=== PATIENT | male | born 1990 | race Caucasian/White ===

== ENCOUNTER 2017-04-28 22:32 | Emergency (ER) | payer BC ==
[~2017-04-28] VITALS: Ht 182.9 cm; Wt 74.7 kg
[2017-04-28] MEDS ORDERED: LIDOcaine 1% 30ml preserv. free vial IJ STA (23:17)
[2017-04-29] MEDS ORDERED: HYDR-569 PO (00:56)
[2017-04-29] MEDS ORDERED: IBUP-1984 PO (00:56)
[2017-04-29 01:12] VITALS: BP 103/51
== END 2017-04-29 01:23 | disposition home or self-care (01) ==
LOC: ER 22:33
DX: S62.326A Displaced fracture of shaft of fifth metacarpal bone, right hand, initial encounter for closed fracture (principal); W22.8XXA Striking against or struck by other objects, initial encounter; Y93.89 Activity, other specified; Y92.89 Other specified places as the place of occurrence of the external cause; Y99.8 Other external cause status
CPT/HCPCS: 26605; 73130; 99284; A4565; A6449; J3490

== ENCOUNTER 2017-05-17 09:57 | Outpatient (CLI) | payer BC ==
[~2017-05-17 09:57] MED LIST: HYDR-569 PO; IBUP-1984 PO
[2017-05-17 10:04] VITALS: BP 137/82
== END 2017-05-17 10:35 | disposition home or self-care (01) ==
LOC: ORTHO 09:57
PROVIDERS: ATTEND Nurse Practitioner Family
DX: S62.326A Displaced fracture of shaft of fifth metacarpal bone, right hand, initial encounter for closed fracture (principal); F17.210 Nicotine dependence, cigarettes, uncomplicated; X58.XXXA Exposure to other specified factors, initial encounter; Y93.89 Activity, other specified; Y92.89 Other specified places as the place of occurrence of the external cause; Y99.8 Other external cause status
CPT/HCPCS: 29125; 73130; 99213

== ENCOUNTER 2017-05-31 09:43 | Outpatient (CLI) | payer BC ==
[2017-05-31 09:43] VITALS: BP 147/81
[~2017-05-31 09:43] MED LIST changes: -IBUP-1984 PO
== END 2017-05-31 10:50 | disposition home or self-care (01) ==
LOC: ORTHO 09:43
PROVIDERS: ATTEND Nurse Practitioner Family
DX: S62.356D Nondisplaced fracture of shaft of fifth metacarpal bone, right hand, subsequent encounter for fracture with routine healing (principal); F17.210 Nicotine dependence, cigarettes, uncomplicated; F12.90 Cannabis use, unspecified, uncomplicated; X58.XXXD Exposure to other specified factors, subsequent encounter
CPT/HCPCS: 29125; 73130; 99213

== ENCOUNTER 2017-06-20 17:27 | Emergency (ER) | payer BC ==
[~2017-06-20] VITALS: Ht 182.9 cm; Wt 49.6 kg
[2017-06-20 17:35] VITALS: BP 116/75
== END 2017-06-20 23:34 | disposition left against medical advice (07) ==
LOC: ER 17:27
DX: H57.10 Ocular pain, unspecified eye (principal); Z53.21 Procedure and treatment not carried out due to patient leaving prior to being seen by health care provider

== ENCOUNTER 2017-06-26 11:12 | Outpatient (CLI) | payer BC ==
[2017-06-26 11:22] VITALS: BP 148/73
== END 2017-06-26 11:50 | disposition home or self-care (01) ==
LOC: ORTHO 11:12
PROVIDERS: ATTEND Nurse Practitioner Family
DX: S62.326G Displaced fracture of shaft of fifth metacarpal bone, right hand, subsequent encounter for fracture with delayed healing (principal); F17.210 Nicotine dependence, cigarettes, uncomplicated; X58.XXXD Exposure to other specified factors, subsequent encounter
CPT/HCPCS: 29125; 73130; 99213

== ENCOUNTER 2020-12-25 12:44 | Emergency (ER) | payer OTHER ==
[~2020-12-25] VITALS: Ht 177.8 cm; Wt 90.0 kg
[~2020-12-25 12:44] MED LIST changes: +HYDR-4383 PO; -HYDR-569 PO
[2020-12-25 12:45] VITALS: BP 148/92
[2020-12-25] MEDS ORDERED: ketorolac tromethamine 15mg/ml inj. IM ONE (14:35)
== END 2020-12-25 15:20 | disposition home or self-care (01) ==
LOC: ER 12:44
DX: T68.XXXA Hypothermia, initial encounter (principal); M79.671 Pain in right foot; M79.672 Pain in left foot; Z72.89 Other problems related to lifestyle; Z79.899 Other long term (current) drug therapy; Z59.00 Homelessness unspecified; W93.8XXA Exposure to other excessive cold of man-made origin, initial encounter
CPT/HCPCS: 96372; 99283; J1885

== ENCOUNTER 2023-11-03 13:03 | Emergency (ER) | payer OTHER ==
[~2023-11-03] VITALS: Ht 182.9 cm; Wt 72.7 kg
[2023-11-03 13:34] LABS: BILIRUBIN,URINE SMALL (Neg); CLARITY,URINE CLEAR (Clear); COLOR,URINE YELLOW (Yellow); GLUCOSE, URINE NEGATIVE (Neg); KETONES,URINE NEGATIVE (Neg); LEUKOCYTE ESTERASE ,URINE NEGATIVE (Neg); NITRITES, URINE NEGATIVE (Neg); OCCULT BLOOD,URINE NEGATIVE (Neg); PH,URINE 5.5 (4.8-8.0); PROTEIN,URINE NEGATIVE (Neg); UROBILINOGEN,URINE 0.2 E.U/dL (0.2-1.0)
[2023-11-03 13:36] LABS: UA COLLECTION TYPE NON-SPECIFIED
[2023-11-03 13:54] LABS: BASOPHILS % (AUTO) 0.2 % (0-1); EOSINOPHILS # (AUTO) 0.1 X10'3 (0-0.9); EOSINOPHILS % (AUTO) 0.7 % (0-6); HEMOGLOBIN 15.2 g/dl (14.0-17.9); LYMPHOCYTES # (AUTO) 0.7 X10'3 (1.1-4.8); LYMPHOCYTES % (AUTO) 5.9 % (21-51); MEAN CORPUSCULAR HEMOGLOBIN 32.1 PG (27.0-31.0); MEAN CORPUSCULAR HGB CONC 33.7 g/dL (33.0-36.5); MEAN CORPUSCULAR VOLUME 95.3 FL (78-98); MEAN PLATELET VOLUME 8.4 FL (7.4-10.4); MONOCYTES # (AUTO) 0.7 X10'3 (0-0.9); MONOCYTES % (AUTO) 5.7 % (2-12); NEUTROPHILS # (AUTO) 10.4 X10'3 (1.8-7.7); NEUTROPHILS % (AUTO) 87.5 % (42-75); PLATELET COUNT 265 X10'3 (140-440); RED BLOOD COUNT 4.72 X10'6 (4.70-6.10); RED CELL DISTRIBUTION WIDTH 12.9 % (11.5-14.5); WHITE BLOOD COUNT 11.9 X10'3 (4.5-11.0)
[2023-11-03 14:10] LABS: ALANINE AMINOTRANSFERASE 26 U/L (12-78); ALBUMIN 3.9 G/DL (3.4-5.0); ALBUMIN/GLOBULIN RATIO 1.2 (1.1-1.5); ALKALINE PHOSPHATASE 77 IU/L (46-116); ANION GAP 11 (8-16); ASPARTATE AMINO TRANSFERASE 17 U/L (10-37); BILIRUBIN,TOTAL 0.5 MG/DL (0.1-1.0); BLOOD UREA NITROGEN 18 MG/DL (7-18); BUN/CREATININE RATIO 20.9 (10.0-20.0); CALCIUM 8.8 MG/DL (8.5-10.1); CHLORIDE 106 MMOL/L (99-107); CREATININE 0.86 MG/DL (0.60-1.10); GLUCOSE 89 MG/DL (70-104); LIPASE 28 U/L (16-77); POTASSIUM 3.9 MMOL/L (3.5-5.1); SODIUM 144 MMOL/L (135-145); TOTAL CARBON DIOXIDE 26.9 MMOL/L (24-32); TOTAL PROTEIN 7.2 G/DL (6.4-8.2); eCRCL 125 ML/MIN; eGFR > 90 ML/MIN
[2023-11-03] MEDS: metoclopramide 5 mg/ml inj IV ONE (14:24)
[2023-11-03] MEDS: diphenhydrAMINE 50 mg/ml inj IV ONE (14:24)
[2023-11-03] MEDS: normal saline 1000ML IV soln IVB ONE (14:25)
[2023-11-03] MEDS ORDERED: ONDA-243 PO (14:46)
[2023-11-03 15:21] VITALS: BP 120/83; PULSE 82; RESP 15; TEMP 98.1; O2SAT 98
== END 2023-11-03 15:23 | disposition home or self-care (01) ==
LOC: ER 13:03
DX: R11.2 Nausea with vomiting, unspecified (principal); Z72.89 Other problems related to lifestyle; Z79.899 Other long term (current) drug therapy
CPT/HCPCS: 36415; 80053; 81003; 83690; 85025; 96361; 96374; 96375; 99284; J1200; J2765; J7030

== ENCOUNTER 2024-09-19 23:47 | Emergency (ER) | payer OTHER ==
[~2024-09-19] VITALS: Ht 182.9 cm; Wt 75.5 kg
[~2024-09-19 23:47] MED LIST changes: +ONDA-243 PO
[2024-09-19 23:54] VITALS: BP 121/90; PULSE 94; RESP 14; O2SAT 98
--- NOTE | 2024-09-20 00:11 | Physician Documentation ---
History of Present Illness ~ Chief Complaint: Abrasion Stated Complaint: INFECTION UNDER EYE Time Seen by MD: 01:22 Primary Medical Doctor: none HPI 33-year-old male presents with pain to abrasion under right eye for 2 days. He states that he squeezed it like a zit and fluid squirted out. He denies any dental pain. He is also complaining of multiple bug bites to his back and behind his ear. Denies any fevers or chills. Medication Reconciliation Allergies: Uncoded Allergies: METAL (Allergy, Unknown, 09/19/24) Scheduled Hydrocodone/Acetaminophen ([place] 5-325 Tablet), 1-2 TAB PO Q4HPRN Scheduled PRN ONDANSETRON ODT 4mg tablet (Ondansetron Odt), 1 TAB PO Q6H PRN PRN for nausea/vomiting Past Medical History Past Medical History: No Pertinent History, Hypothyroidism Past Surgical History: no surgical history Smoking Status: Current every day smoker Alcohol Use: Occasionally Drug Use: none Lives with: Family Lives In: Home Occupation: employed Review of Systems All Other Systems at this time: Reviewed and Negative ROS Patient denies any other acute symptoms other than above. All other systems are negative Physical Exam Vital Signs: RN Vital Signs have been reviewed: Yes, Temperature: 97.0, Source: Temporal, Heart Rate: 94, Respiratory Rate: 14, BP: 121/90, Pulse Oximetry: 98, Weight: 75.500 Pulse Oximetry Reflects: adequate oxygenation Physical Exam General Appearance: No distress, poor hygiene, disheveled HEENT: Normal OP, moist oral mucosa, PERRL, EOMI Neck: supple, normal ROM, trachea midline Pulmonary: No respiratory distress, CTA, BS equal Cardiac: RRR, no murmur, rub or gallop, Skin: intact, dry, warm, lesions over the left posterior lateral neck that appear like insect bites or mosquito bites. Patient has a crusty lesion, honeycomb appearing that has been abraded by him scratching in squeezing it. Neuro: AAOx3, speech is clear, no focal motor weakness Psych: normal affect, good eye contact, no apparent hallucination, normal speech Progress Results/Orders Results/Orders Vital Signs 09/19/24 23:54 Temp 97.0 Pulse 94 Resp 14 B/P (MAP) 121/90 Pulse Ox 98 Medical Decision Making Findings Differential diagnosis includes but is not limited to: Abrasion, impetigo, abscess, cellulitis, erysipelas Emergency department course/medical decision-making: Patient's physical exam is consistent with impetigo. Patient will be placed on mupirocin and dicloxacillin. Diagnosis discussed with the patient the need for antibiotics. Patient is stable for discharge. Departure Time of Disposition: 01:30 Disposition: HOME / SELF CARE / HOMELESS Impression: Primary Impression: Impetigo Condition: Stable Discharge Instructions: Impetigo, Adult Prescriptions Mupirocin* (Bactroban*) 22 Gm Tube 1 APPLIC TOP Q8H for 5 Days, #15 GM apply to affected area(s) Prov: NICCI FRANCISCO MD 09/20/24 Dicloxacillin Sodium* (Dynapen*) 500 Mg Capsule 1 CAP PO Q6H for 7 Days, #28 CAP Prov: NICCI FRANCISCO MD 09/20/24 Education Educated: Patient Educated regarding: diagnosis, treatment Additional Comment Medical Screen Exam This patient recieved a medical screening examination. After reviewing the individual's medical complaints with presenting symptoms and performing an appropriate physical examination, it was determined that no immediate life- threatening emergency medical condition is present. This individual is also not a women having contractions. Signature Scribe Signature: No scribe Attestation: No scribe SALO WEBER Sep 20, 2024 00:11 NICCI FRANCISCO MD Sep 20, 2024 01:30
[2024-09-20] MEDS ORDERED: MUPI22OI30 TOP (01:33)
[2024-09-20] MEDS ORDERED: DYN500C PO (01:33)
[2024-09-20 01:42] VITALS: TEMP 97
== END 2024-09-20 01:43 | disposition home or self-care (01) ==
LOC: ER 23:48
DX: L01.00 Impetigo, unspecified (principal); F17.200 Nicotine dependence, unspecified, uncomplicated
CPT/HCPCS: 99283

== ENCOUNTER 2024-10-16 04:36 | Emergency (ER) | payer OTHER ==
[~2024-10-16] VITALS: Ht 182.9 cm; Wt 68.8 kg
[2024-10-16 04:41] VITALS: BP 131/86; PULSE 100; RESP 17; TEMP 96.3; O2SAT 99
[2024-10-17] MEDS ORDERED: NO HOME MEDS (09:54)
== END 2024-10-16 09:11 | disposition left against medical advice (07) ==
LOC: ER 04:37
DX: M79.89 Other specified soft tissue disorders (principal); Z53.21 Procedure and treatment not carried out due to patient leaving prior to being seen by health care provider

== ENCOUNTER 2024-10-17 08:46 | Inpatient (IN) | payer OTHER ==
[~2024-10-17] VITALS: Ht 182.9 cm; Wt 73.2 kg
--- NOTE | 2024-10-17 09:47 | Physician Documentation ---
History of Present Illness ~ Chief Complaint: Leg Pain Stated Complaint: POISON [place]AK Time Seen by MD: 09:21 OK to notify your PCP?: Yes Primary Medical Doctor: none Source: patient Mode of Arrival: POV Exam Limitations: no limitations HPI 33-year-old male presents with bilateral lower extremity wounds with ulcerations. He does have a area of wound with crusting over on his right face. He states that he has had these for the past 4-5 days however they appear to be a spreading. He has not taken any antibiotics for this yet. He denies a hist ory of MRSA or fevers at home. He is homeless. Tetanus witin 5 years: No Medication Reconciliation Allergies: Coded Allergies: No Known Allergies (Unverified , 10/17/24) Miscellaneous Medications Home Med List (No Home Medications), (Reported) Past Medical History Past Medical History: No Pertinent History, Hypothyroidism Past Surgical History: no surgical history Alcohol Use: Occasionally Drug Use: none Lives with: Family Lives In: Home Occupation: employed Review of Systems All Other Systems at this time: Reviewed and Negative Physical Exam Vital Signs: RN Vital Signs have been reviewed: Yes, Temperature: 98.3, Source: Oral, Heart Rate: 98, Respiratory Rate: 16, BP: 113/79, Pulse Oximetry: 99, Weight: 73.150 Oxygen Flow Rate: 0 Pulse Oximetry Reflects: adequate oxygenation Physical Exam General: Alert, no apparent distress. HEENT: PERRL, EOMI, no injection, moist mucous membranes. Neck: Full range of motion. Respiratory: Lungs clear, no respiratory distress. Chest: No accessory muscle use. Cardiovascular: Regular rate and rhythm, no murmurs. Gastrointestinal: Soft, nontender, nondistended. Bowels sounds present. Extremities: Normal range of motion, no deformity. Neurologic: Oriented x4. Psychiatric: Normal mood and affect. Skin: Bilateral foot, shun, calf, and knee ulcerations with crusting, purulent drainage, surrounding edema, warmth, induration and localized pain. Wound with crusting drainage to right cheek. Progress Results/Orders Reviewed/noted all lab results: Yes Results/Orders Orders - HEIDI WEBER BRICK SHADER Urinalysis, Cult If Indicated (10/17/24 09:40) Culture Blood (10/17/24 09:40) Saline Lock (10/17/24 ) Monitor (10/17/24 ) Page Hospitalist (10/17/24 10:57) Fill Out Med Reconciliation (10/17/24 10:57) Completed Orders - HEIDI WEBER BRICK SHADER Cbc/Diff (10/17/24 09:40) MG (10/17/24 09:40) Procalcitonin (10/17/24 09:40) Vancomycin/Ns 1 Gm Add-[place] (Vancomyc (10/17/24 09:40) Piperacillin/Tazo 3.375gm/50ml (Zosyn 3. (10/17/24 09:40) BMP (10/17/24 09:40) Lacticsepsis (10/17/24 09:40) Normal Saline 1000ml (0.9% Sodium Chlori (10/17/24 09:40) Normal Saline 1000ml (0.9% Sodium Chlori (10/17/24 11:00) Medications Received in ER Medications (Trade) Dose Ordered Sig/Grupo Route PRN Reason Start Time Stop Time Status Last Admin Dose Admin Vancomycin HCl 250 ml @ 166 mls/hr ONCE ONCE IV 10/17/24 09:40 10/17/24 11:10 DC 10/17/24 11:01 166 MLS/HR Piperacillin/ Tazobactam/ Dextrose 50 ml @ 100 mls/hr ONCE ONCE IV 10/17/24 09:40 10/17/24 10:09 DC 10/17/24 10:31 100 MLS/HR (0.9% sodium chloride (NS) 1000ml IV soln) 1,000 ml ONCE ONCE IVB 10/17/24 09:40 10/17/24 09:44 DC 10/17/24 10:31 1,000 ML (0.9% sodium chloride (NS) 1000ml IV soln) 1,000 ml ONCE ONCE IVB 10/17/24 11:00 10/17/24 11:01 DC 10/17/24 11:03 1,000 ML Vital Signs 10/17/24 10/17/24 10/17/24 10/17/24 08:53 09:43 09:49 10:57 Temp 98.3 Pulse 98 82 79 Resp 16 B/P (MAP) 113/79 113/73 (86) 131/78 (95) Pulse Ox 99 100 100 O2 Flow Rate 0 0 0 Laboratory Tests Test 10/17/24 10:04 White Blood Count 12.4 H Red Blood Count 4.37 L Hemoglobin 13.6 L Hematocrit 40.2 L Mean Corpuscular Volume 91.9 Mean Corpuscular Hemoglobin 31.2 H Mean Corpuscular Hemoglobin Concent 33.9 Red Cell Distribution Width 12.3 Platelet Count 393 Mean Platelet Volume 7.6 Neutrophils (%) (Auto) 76.3 H Lymphocytes (%) (Auto) 16.7 L Monocytes (%) (Auto) 4.3 Eosinophils (%) (Auto) 2.2 Basophils (%) (Auto) 0.5 Neutrophils # (Auto) 9.5 H Lymphocytes # (Auto) 2.1 Monocytes # (Auto) 0.5 Eosinophils # (Auto) 0.3 Basophils # (Auto) 0.1 CBC Comment Sodium Level 141 Potassium Level 3.7 Chloride Level 103 Carbon Dioxide Level 34.0 H Anion Gap 4 L Blood Urea Nitrogen 9 Creatinine 1.06 Estimated GFR/1.73 m2 80 BUN/Creatinine Ratio 8.5 L Glucose Level 116 H Lactic Acid Level 1.6 Calcium Level 8.5 Magnesium Level 2.5 H Albumin 3.2 L Procalcitonin < 0.05 Chemistry Comments Medical Decision Making Additional info obtained from: old records Findings 33-year-old male with multiple bilateral leg wounds with ulceration, purulent drainage and erythema. He states this all started 4 days ago. I did a sepsis workup on him and his WBCs are elevated, lactic is normal, procalcitonin is normal and his heart rate was over 90 on arrival. He is afebrile currently. I started with Zosyn and vancomycin for IV antibiotics, and administered 2 L normal saline bolus and have paged for admission. He does have some mild anemia, but the rest of his labs are unremarkable. He is currently homeless and does not have any adequate follow up care or wound care resources. I discussed this case with Dr. Bazzi who also examined the patient and agrees that he would benefit from admission for IV antibiotics as well as wound care resources. I spoke with Dr. Bates who accepts this admission. General Diff Dx:Considerations: Include: Neurovascular injury Ankle Diff Dx:Considerations: Include: Gout, Osteomyelitis (His knee) Foot Diff Dx:Considerations: Include: Abrasion, Arthritis Departure Disposition: 09 ADMITTED INPATIENT Admitted to Inpatient Unit: to hospitalist Admission Level of Care: Med/Surg Impression: Primary Impression: Open wound of both legs with complication Referrals: NO PRIMARY CARE PROVIDER (PCP) Additional Comment Medical Screen Exam This patient recieved a medical screening examination. After reviewing the individual's medical complaints with presenting symptoms and performing an appropriate physical examination, it was determined that no immediate life- threatening emergency medical condition is present. This individual is also not a women having contractions. Signature Scribe Signature: . Attestation: Scribed for Heidi Weber Paper Baler by Heidi Dsouza NP . 10/17/24 11:15 Parts of this note were created using [employer] voice recognition software program. While efforts were made to correct any mistakes made by this voice recognition software program, nonsensical phrases may remain in this note. In addition, there may be errors and syntax, grammar, content and spelling. HEIDI WEBER BRICK SHADER Oct 17, 2024 09:47
[2024-10-17] MEDS ORDERED: NO HOME MEDS (09:54)
[2024-10-17] MEDS: piperacillin/tazo 3.375gm/50ml 50 ML IV ONE (10:31)
[2024-10-17] MEDS: normal saline 1000ML IV soln IVB ONE ×2 (10:31→11:03)
[2024-10-17 10:39] LABS: MEAN PLATELET VOLUME 7.6 FL (7.4-10.4); RED CELL DISTRIBUTION WIDTH 12.3 % (11.5-14.5)
[2024-10-17 10:45] LABS: CREATININE 1.06 MG/DL (0.60-1.10); TOTAL CARBON DIOXIDE 34.0 MMOL/L (24-32); eCRCL 102 ML/MIN; eGFR 80 ML/MIN
[2024-10-17] MEDS: vancomycin/NS 1 GM ADD-VANTAGE 250 ML IV ONE (11:01)
[2024-10-17] MEDS ORDERED: potassium Cl 20 mEq SR tablet PO PRN ×2 (11:15)
[2024-10-17] MEDS ORDERED: magnesium sulf-water 2g/50mL 50 ML IV PRN (11:15)
[2024-10-17] MEDS ORDERED: potassium Cl 40MEQ/1/2NS 520ml 520 ML IV PRN (11:15)
[2024-10-17] MEDS ORDERED: ondansetron/PF 4mg/2ml inj IV PRN (11:15)
[2024-10-17] MEDS ORDERED: HYDROcodone/acetaminophen 5mg/325mg tablet PO PRN (11:15)
[2024-10-17] MEDS ORDERED: magnesium Cl slow-release 64mg tablet PO PRN (11:15)
[2024-10-17] MEDS ORDERED: bisacodyl 10mg suppository rectal RC PRN (11:15)
[2024-10-17] MEDS ORDERED: magnesium sulf-water 4G/100mL 100 ML IV PRN (11:15)
[2024-10-17] MEDS: normal saline 1000ml 1,000 ML IV SCH (12:04)
[2024-10-17 13:08] VITALS: RESP 18; O2SAT 100
[2024-10-17 13:19] VITALS: BP 124/75; PULSE 83; RESP 18; TEMP 97.5; O2SAT 100
[2024-10-17] MEDS: nicotine 14mg patch - 24hr TD SCH (15:05)
[2024-10-17 18:00] VITALS: BP 130/84; PULSE 78; RESP 15; TEMP 98.4; O2SAT 98
--- NOTE | 2024-10-17 18:16 | HISTORY AND PHYSICAL ---
History & Physical Providers to CC ~ History of Present Illness Reason for Admit\Complaint: Sore over legs History of Present Illness 33-year-old male presents with bilateral lower extremity wounds with ulcerations. He does have a area of wound with crusting over on his right face. He states that he has had these for the past 4-5 days however they appear to be a spreading. He has not taken any antibiotics for this yet. He denies a history of MRSA or fevers at home. He is homeless. Patient denies any IV drug use. He does not feel he is diabetic. Patient does not have any other medical problems does not take any medications. Allergies: Coded Allergies: No Known Allergies (Unverified , 10/17/24) Home Medications Home Medications Active Reported No Home Medications (Home Med List) Each Past Medical History Past Medical History No Pertinent History, Past Surgical History Surgical History Comment no surgical history Past Social History Social History Comment Patient had one beer 12 on couple of days back smoke half pack of cigarettes , use cannabis off and on . Denies any other recreational drug use. ROS ROS Review of system as mentioned above in HPI rest of the review of system unremarkable Exam Vitals: Vital Signs Date Time Temp Pulse Resp B/P (MAP) Pulse Ox O2 Delivery O2 Flow Rate FiO2 10/17/24 13:19 97.5 83 18 124/75 (91) 100 Room Air 10/17/24 11:54 0 General: General-patient not in any acute distress, alert awake oriented, chronically ill-appearing HEENT-atraumatic normocephalic, neck supple without elevated JVD, no thyromegaly or carotid bruit. No lymphadenopathy bilaterally. Eyes-no icterus or pallor seen in eyes Chest-clear to auscultation bilaterally, breathing nonlabored no tachypnea, no wheezing, no crepitation, no crackles. Heart-S1-S2 normal, regular heart rate no murmur Abdomen bowel sounds positive on auscultation, soft nondistended nontender no guarding, no rigidity Skin - bilateral lower extremity wound present one lower extremity wound open pus discharge noticed. He also has crusting over on his right face. Neurology-grossly intact, nonfocal alert awake oriented Extremity- no pedal edema able to move all 4 extremities Psychiatry - patient is not confused or agitated cooperated during physical examination Diagnostic Data Last Recorded Lab Results: 10/17/24 1004 10/17/24 1004 Counseling Services Smoking & Tobacco Cessation: 3-10 Minutes Advance Care Planning Advanced Care plannin - 30 Minutes Additional Plan 33-year-old male presents with bilateral lower extremity wounds with ulcerations. Patient is admitted for bilateral lower extremity cellulitis. Patient is started on vancomycin and ceftriaxone we will continue to monitor patient's vitals and labs. Nicotine patch ordered due to patient's history of smoking. Patient is strongly advised to stop smoking and risks explained. Code status discussed with the patient patient wishes to stay full code. Time spent in discussing code status 16 minutes. Patient does not take any medications at home further management depending on response to treatment we will continue to follow patient in a.m. Date of Service: Oct 17, 2024 Billing Provider: YENIFER TURCIOS MD Common Visit Codes: 67649-QBAGIUD INP/OBS CARE (HIGH) Secondary Visit Codes: 44568-[id number] CARE PLAN 30 MINUTES YENIFER TURCIOS MD Oct 17, 2024 18:16
[2024-10-17 18:55] LABS: LEUKOCYTE ESTERASE ,URINE NEGATIVE (Neg); NITRITES, URINE NEGATIVE (Neg); OCCULT BLOOD,URINE NEGATIVE (Neg)
[2024-10-17 18:58] LABS: UA COLLECTION TYPE CLN CATCH MIDSTREAM
[2024-10-17 19:10] LABS: URINE AMPHETAMINE SCREEN POSITIVE (Neg); URINE BARBITUATE SCREEN NEGATIVE (Neg); URINE BENZODIAZEPINES SCREEN NEGATIVE (Neg); URINE CANNABINOID SCREEN POSITIVE (Neg); URINE COCAINE SCREEN NEGATIVE (Neg); URINE METHADONE SCREEN NEGATIVE (Neg); URINE OPIATE SCREEN NEGATIVE (Neg); URINE PHENCYCLIDINE SCREEN NEGATIVE (Neg)
[2024-10-17 20:00] VITALS: RESP 15; O2SAT 98
[2024-10-17] MEDS: heparin, porcine 5000 units/ml vial SQ SCH (20:50)
[2024-10-17 22:00] VITALS: BP 124/81; PULSE 71; RESP 20; TEMP 97.6; O2SAT 100
[2024-10-17] MEDS: VANCOmycin 1250MG/NS 250ml Bag 250 ML IV SCH (23:12)
[2024-10-18 05:00] VITALS: BP 111/74; PULSE 69; RESP 20; TEMP 97.9; O2SAT 99
[2024-10-18 06:09] LABS: MEAN PLATELET VOLUME 7.7 FL (7.4-10.4); RED CELL DISTRIBUTION WIDTH 12.5 % (11.5-14.5)
[2024-10-18 06:29] LABS: CREATININE 0.76 MG/DL (0.60-1.10); TOTAL CARBON DIOXIDE 25.5 MMOL/L (24-32); eCRCL 140 ML/MIN; eGFR > 90 ML/MIN
[2024-10-18] MEDS: CefTRIAXone 2gm/D5W 50ml BAG 50 ML IV SCH (07:28)
[2024-10-18 08:19] VITALS: RESP 17; O2SAT 99
[2024-10-18 10:00] VITALS: BP 102/66; PULSE 65; RESP 15; TEMP 98.1; O2SAT 100
[2024-10-18] MEDS: magnesium hydroxide 30ml (MOM) UD suspension PO PRN (11:58)
--- NOTE | 2024-10-18 16:58 | DISCHARGE SUMMARY ---
Discharge Summary Providers to CC ~ Discharge Summary Admission Diagnosis: B/L cellulitis Hospital Course DATE OF ADMISSION: October 17, 2024 DATE OF DISCHARGE: October 18, 2024 Patient left against medical advice. CBC testing done on October 17, 2024 WBC 12.4 on 17 it is 8.6 improved back to normal, hemoglobin 13.3 hematocrit 39.4 platelet count 298. Serum chemistry done on October 18, 2024 sodium 139 potassium 3.8 creatinine 0.76 GFR 90 lactic acid 1.6 procalcitonin 0.05. Normal liver enzymes. Urine drug screen positive for meth and cannabinoids, urine testing negative for any UTI. Blood culture showed no growth after one day wound culture showed Gram-positive cocci in preliminary report Discharge Diagnosis\Comment: bilateral lower extremity wounds with ulcerations. bilateral lower extremity cellulitis, current smoker meth use and cannabinoids use Operations\Procedures: None Consultants: None Complications: None Condition on DC: Stable Discharge Summary: this is 33-year-old male presents with bilateral lower extremity wounds with ulcerations. He does have a area of wound with crusting over on his right face. He states that he has had these for the past 4-5 days however they appear to be a spreading. He has not taken any antibiotics for this yet. He denies a history of MRSA or fevers at home. He is homeless. Patient denies any IV drug use. He does not feel he is diabetic. Patient does not have any other medical problems does not take any medications. During hospitalization patient was treated for bilateral lower extremity cellulitis. Patient is started on vancomycin and ceftriaxone we will continue to monitor patient's vitals and labs. Nicotine patch ordered due to patient's history of smoking. Patient is strongly advised to stop smoking and risks explained. Patient's drug screen positive for meth and cannabinoids. Later today nursing staff Emely mentioned that patient wants to go against medical advice and he left today. Patient was seen today in a.m. in I discussed patient's all labs and current care plan. General-patient not in any acute distress, alert awake oriented, chronically ill-appearing HEENT-atraumatic normocephalic, neck supple without elevated JVD, no thyromegaly or carotid bruit. No lymphadenopathy bilaterally. Eyes-no icterus or pallor seen in eyes Chest-clear to auscultation bilaterally, breathing nonlabored no tachypnea, no wheezing, no crepitation, no crackles. Heart-S1-S2 normal, regular heart rate no murmur Abdomen bowel sounds positive on auscultation, soft nondistended nontender no guarding, no rigidity Skin - bilateral lower extremity wound present one lower extremity wound open pus discharge noticed. He also has crusting over on his right face. Neurology-grossly intact, nonfocal alert awake oriented Extremity- no pedal edema able to move all 4 extremities Psychiatry - patient is not confused or agitated cooperated during physical examination *Problems/Diagnosis: (1) Open wound of both legs with complication Status: Acute Total Time Spent on D/C: Up to 30 Minutes Date of Service: Oct 18, 2024 Billing Provider: YENIFER TURCIOS MD Common Visit Codes: 81066-VLE/OBS DISCH DAY <30MIN YENIFER TURCIOS MD Oct 18, 2024 16:58
[2024-10-18] MEDS ORDERED: VANCOMYCIN LEVEL IV ONE (22:30)
== END 2024-10-18 16:02 | disposition left against medical advice (07) | DRG 603 ==
LOC: ER 08:46 → ED HOLD 11:18 → SUR 3N 12:55
PROVIDERS: ADMIT Internal Medicine; ATTEND Internal Medicine
DX: L03.115 Cellulitis of right lower limb (principal); Z59.00 Homelessness unspecified; L97.929 Non-pressure chronic ulcer of unspecified part of left lower leg with unspecified severity; L97.919 Non-pressure chronic ulcer of unspecified part of right lower leg with unspecified severity; F17.210 Nicotine dependence, cigarettes, uncomplicated; Z71.6 Tobacco abuse counseling; L03.116 Cellulitis of left lower limb; Z53.29 Procedure and treatment not carried out because of patient's decision for other reasons
CPT/HCPCS: 36415; 80048; 80053; 80305; 81003; 82948; 83605; 83735; 84145; 85025; 87040; 87070; 87081; 96365; 99285; A6223; A6253; A6258; A6446; A6449; G0378; J0696; J1644; J2543; J3373; J3374; J7030

== ENCOUNTER 2025-01-25 19:10 | Emergency (ER) | payer OTHER ==
[~2025-01-25] VITALS: Ht 182.9 cm; Wt 77.6 kg
[~2025-01-25 19:10] MED LIST changes: -HYDR-4383 PO; +NO HOME MEDS; -ONDA-243 PO
--- NOTE | 2025-01-25 19:59 | Physician Documentation ---
History of Present Illness ~ Chief Complaint: Abscess Stated Complaint: FACE INFECTION Time Seen by MD: 19:51 Primary Medical Doctor: none HPI 34-year-old male patient presents with a complaint of abscess or infection that has developed on his upper lip. He states his infection developed in the last two days. comp[lains of increased pain swelling Tetanus Within 5 Years: No Medication Reconciliation Allergies: Coded Allergies: No Known Allergies (Unverified , 10/17/24) Scheduled Sulfamethoxazole/Trimethoprim (Septra Ds Tab), 1 TAB PO Q12H Miscellaneous Medications Home Med List (No Home Medications), (Reported) Past Medical History Past Medical History: No Pertinent History, Hypothyroidism Past Surgical History: no surgical history Alcohol Use: Occasionally Drug Use: none Lives with: Family Lives In: Home Occupation: employed Physical Exam Vital Signs: Temperature: 97.6, Heart Rate: 126, Respiratory Rate: 16, BP: 135/89, Pulse Oximetry: 99, Weight: 77.600 Oxygen Flow Rate: 0 Physical Exam General: Alert, no apparent distress. HEENT: PERRL, EOMI, no injection, moist mucous membranes. crusty yellow lesion on left side of upper lip, draining purulent discharge Neck: Full range of motion. Respiratory: Lungs clear, no respiratory distress. Neurologic: Oriented x4. Psychiatric: Normal mood and affect. Progress Results/Orders Results/Orders Orders - DAVID CAMP ELASTIC YARN TWISTER Culture Blood (01/25/25 20:03) Lacticsepsis (01/25/25 20:03) Completed Orders - DAVID CAMP ELASTIC YARN TWISTER Cbc/Diff (01/25/25 19:59) BMP (01/25/25 19:59) LA (01/25/25 19:59) Sulfamethox/Trimetho. Ds Tab (Novra Ds (01/25/25 20:10) Medications Received in ER Medications (Trade) Dose Ordered Sig/Grupo Route PRN Reason Start Time Stop Time Status Last Admin Dose Admin (Septra DS tab) 1 tab ONCE ONCE PO 01/25/25 20:10 01/25/25 20:11 DC 01/25/25 20:34 1 TAB Vital Signs 01/25/25 01/25/25 19:18 22:02 Temp 97.6 98.1 Pulse 126 118 Resp 16 16 B/P (MAP) 135/89 128/78 Pulse Ox 99 99 O2 Flow Rate 0 Laboratory Tests Test 01/25/25 20:14 White Blood Count 17.6 H Red Blood Count 5.12 Hemoglobin 16.3 Hematocrit 47.3 Mean Corpuscular Volume 92.5 Mean Corpuscular Hemoglobin 31.8 H Mean Corpuscular Hemoglobin Concent 34.4 Red Cell Distribution Width 12.7 Platelet Count 376 Mean Platelet Volume 8.0 Neutrophils (%) (Auto) 78.9 H Lymphocytes (%) (Auto) 14.8 L Monocytes (%) (Auto) 4.5 Eosinophils (%) (Auto) 1.0 Basophils (%) (Auto) 0.8 Neutrophils # (Auto) 13.9 H Lymphocytes # (Auto) 2.6 Monocytes # (Auto) 0.8 Eosinophils # (Auto) 0.2 Basophils # (Auto) 0.1 CBC Comment Sodium Level 138 Potassium Level 4.0 Chloride Level 99 Carbon Dioxide Level 27.4 Anion Gap 12 Blood Urea Nitrogen 12 Creatinine 1.03 Estimated GFR/1.73 m2 82 BUN/Creatinine Ratio 11.7 Glucose Level 109 H Lactic Acid Level 1.4 Calcium Level 9.0 Albumin 3.6 Chemistry Comments Microbiology Date/Time Source Procedure Growth Status 01/25/25 20:19 Blood Arm Right Blood Culture - Preliminary NEGATIVE (LESS THAN 24 HOURS) Resulted Medical Decision Making Additional information obtaine: old records Findings Patient remains nontoxic appearing he does have an elevated white count but no elevation in his lactic. Going to treat him with a systemic oral antibiotics and have him follow up in the outpatient setting Differential Dx:Considerations: Include: Abscess, Bacteremia, Cellulitis, Erysipelas, Felon, Gas gangrene, Hidrademitis suppurativa, Impetigo, Lymphangitis, Osteromyelitis, Paronychia, Septicemia, Other Departure Disposition: HOME / SELF CARE / HOMELESS Impression: Primary Impression: Impetigo Discharge Instructions: Impetigo, Adult Referrals: NO PRIMARY CARE PROVIDER (PCP) Prescriptions Sulfamethoxazole/Trimethoprim (Septra Ds Tab) 800 Mg/160 Mg Tablet 1 TAB PO Q12H for 10 Days, #20 TAB Prov: DAVID CAMP ELASTIC YARN TWISTER 01/25/25 Education Educated: Patient Educated regarding: diagnosis Signature Scribe Signature: h Attestation: Scribed for David Camp Inlayer Silver by David Camp - MIRTHA . 01/25/25 23:12 DAVID CAMP NP Jan 25, 2025 19:58
[2025-01-25 20:28] LABS: MEAN PLATELET VOLUME 8.0 FL (7.4-10.4); RED CELL DISTRIBUTION WIDTH 12.7 % (11.5-14.5)
[2025-01-25] MEDS: sulfamethoxazole/trimethoprim DS (800/160mg) tablet PO ONE (20:34)
[2025-01-25 20:36] LABS: CREATININE 1.03 MG/DL (0.60-1.10); TOTAL CARBON DIOXIDE 27.4 MMOL/L (24-32); eCRCL 110 ML/MIN; eGFR 82 ML/MIN
[2025-01-25] MEDS ORDERED: SULF1TAB45 PO (20:48)
[2025-01-25 22:02] VITALS: BP 128/78; PULSE 118; RESP 16; TEMP 98.1; O2SAT 99
== END 2025-01-25 22:04 | disposition home or self-care (01) ==
LOC: ER 19:11
DX: L01.00 Impetigo, unspecified (principal)
CPT/HCPCS: 36415; 80048; 83605; 85025; 87040; 99283